=== PATIENT | male | born 1990 | race African-American/Black ===

== ENCOUNTER 2017-03-12 20:28 | Emergency (ER) | payer SELFPAY | END 2017-03-12 20:57 | disposition home or self-care (01) | LOC: ERS 20:28 | DX: K02.9 Dental caries, unspecified (principal); K05.10 Chronic gingivitis, plaque induced | CPT/HCPCS: 99282 ==

== ENCOUNTER 2017-05-28 22:39 | Emergency (ER) | payer OTHER, SELFPAY ==
[2017-05-28] MEDS ORDERED: Ibuprofen 200 MG TAB ONE (23:51)
[2017-05-28] MEDS ORDERED: Ibuprofen 800 MG TAB ONE (23:52)
== END 2017-05-28 23:59 | disposition home or self-care (01) ==
LOC: ERS 22:39
DX: K04.7 Periapical abscess without sinus (principal)
CPT/HCPCS: 99283

== ENCOUNTER 2017-06-23 14:08 | Emergency (ER) | payer SELFPAY ==
[2017-06-23] MEDS ORDERED: Dexamethasone 10 MG/ML VIAL ONE (14:55)
== END 2017-06-23 14:40 | disposition home or self-care (01) ==
LOC: ERS 14:08
DX: K02.9 Dental caries, unspecified (principal); F17.210 Nicotine dependence, cigarettes, uncomplicated; Z79.899 Other long term (current) drug therapy
CPT/HCPCS: 99282; J1100